=== PATIENT | female | born 1995 | race Caucasian/White ===

== ENCOUNTER 2019-05-11 19:23 | Emergency (ER) | payer BC ==
[~2019-05-11] VITALS: Ht 172.7 cm; Wt 60.0 kg
[2019-05-11 19:30] VITALS: BP 119/80
[2019-05-11] MEDS ORDERED: BIRTH CONTROL (19:30)
[2019-05-11] MEDS ORDERED: SYNTHROID 0.0.025 MG PO (19:30)
[2019-05-11 20:35] VITALS: PULSE 63; TEMP 98.6
== END 2019-05-11 20:35 | disposition home or self-care (01) ==
LOC: COL.ER 19:23
DX: S61.211A Laceration without foreign body of left index finger without damage to nail, initial encounter (principal); W26.0XXA Contact with knife, initial encounter; Y92.009 Unspecified place in unspecified non-institutional (private) residence as the place of occurrence of the external cause